=== PATIENT | male | born 1965 | race Caucasian/White ===

== ENCOUNTER 2018-05-12 15:35 | Emergency (ER) | payer OTHER ==
[~2018-05-12] VITALS: Ht 180.3 cm; Wt 87.1 kg
[~2018-05-12 15:35] MED LIST: FLOMAX PO; IBUPROFEN 800800 MG PO; NORCO 5-325 TA1 EACH PO; PERCOCET 5-3251 EACH PO; ROBAXIN 750 MG750 MG PO; ZOFRAN4 MG PO
[2018-05-12 17:29] LABS: INFLUENZA A ANTIGEN None Detected (None Detect); INFLUENZA B ANTIGEN None Detected (None Detect)
[2018-05-12] MEDS ORDERED: ZPAK PO (17:32)
[2018-05-12] MEDS ORDERED: TESSALON PERLE100 MG PO (17:32)
[2018-05-12] MEDS ORDERED: VENTOLIN HFA 1818 GM INH (17:32)
[2018-05-12 17:44] VITALS: BP 140/95
== END 2018-05-12 17:46 | disposition home or self-care (01) ==
LOC: M.ERS 15:35
PROVIDERS: Nurse Practitioner Family
DX: J40 Bronchitis, not specified as acute or chronic (principal)